=== PATIENT | male | born 1975 | race Hispanic/Latino ===

== ENCOUNTER 2020-03-13 18:03 | Emergency (ER) | payer OTHER | END 2020-03-13 19:45 | disposition home or self-care (01) | LOC: EDH 18:03 | DX: J18.9 Pneumonia, unspecified organism (principal) | CPT/HCPCS: 71045 ==

== ENCOUNTER 2020-09-19 11:01 | Emergency (ER) | payer OTHER ==
[2020-09-19] MEDS ORDERED: ACETAMINOPHEN 500 MG TABLET ONE (11:18)
[2020-09-19] MEDS ORDERED: PREDNISONE 20 MG TABLET ONE (12:47)
== END 2020-09-19 12:55 | disposition home or self-care (01) ==
LOC: EDH 11:01
DX: B34.9 Viral infection, unspecified (principal); R50.9 Fever, unspecified; R05 Cough; Z20.822 Contact with and (suspected) exposure to COVID-19; J45.909 Unspecified asthma, uncomplicated; M19.90 Unspecified osteoarthritis, unspecified site
CPT/HCPCS: 71045; 87426; 99284; U0003

== ENCOUNTER 2021-09-10 11:58 | Emergency (ER) | payer OTHER ==
[~2021-09-10] VITALS: Ht 167.6 cm; Wt 99.8 kg
[2021-09-10] MEDS ORDERED: DEXAMETHASONE SOD PHOSPHATE 4 MG/ML 1ML VIAL IM ONE (15:00)
[2021-09-10] MEDS ORDERED: IBUP-2070 PO (15:05)
[2021-09-10] MEDS ORDERED: DIPH25 PO (15:05)
[2021-09-10] MEDS ORDERED: PSEU120T62 PO (15:05)
[2021-09-10] MEDS ORDERED: BROM237S PO (15:05)
[2021-09-10] MEDS ORDERED: ALBU8.5H8 IH (15:05)
[2021-09-10] MEDS ORDERED: DEXAMETHASONE SOD PHOSPHATE 4 MG/ML 1ML VIAL ONE (15:09)
[2021-09-10 15:22] VITALS: BP 141/84
== END 2021-09-10 15:15 | disposition home or self-care (01) ==
LOC: EDH 11:58
DX: U07.1 COVID-19 (principal); E11.9 Type 2 diabetes mellitus without complications; J45.909 Unspecified asthma, uncomplicated
CPT/HCPCS: 87635; 87804 ×2; 96372; 99283; C9803; J1100

== ENCOUNTER 2025-02-17 16:01 | Emergency (ER) | payer OTHER ==
[~2025-02-17] VITALS: Ht 162.6 cm; Wt 95.3 kg
[~2025-02-17 16:01] MED LIST: ALBU8.5H8 IH; AZIT1PAC7 PO; BROM118S48 PO; BROM237S PO; DIPH-1242 PO; IBUP-2070 PO; PRED20TA3 PO; PSEU120T62 PO
[2025-02-17 16:17] VITALS: BP 158/90; PULSE 95; RESP 16; TEMP 98.1; O2SAT 98
[2025-02-17] MEDS: teTANUS/diphthERIA TOXOID [ADULT] 0.5 ML VIAL IM ONE (16:25)
[2025-02-17] MEDS: cefTRIAXone 1G VIAL IM ONE (16:25)
[2025-02-17] MEDS: LIDOCAINE HCL 1% 20 ML VIAL INJ STA (16:25)
[2025-02-17] MEDS ORDERED: CEPH500B PO (16:49)
--- NOTE | 2025-02-17 16:49 | ERN ---
General Chief Complaint: Laceration/Avulsion Stated Complaint: LACERATION Time Seen by MD: 16:04 Source: patient History of Present Illness Initial Comments PATIENT IS A 49-YEAR-OLD GENTLEMAN COMING IN TO BE EVALUATED FOR RIGHT HAND 3RD DIGIT LACERATION. PER PATIENT SHE WAS WORKING WITH A POWER TOOL. PATIENT STATES HE CUT THE MIDDLE FINGER. Allergies: Coded Allergies: No Known Drug Allergies (Unverified Allergy, Unknown, 09/19/20) Home Meds Active Scripts Prednisone (Prednisone) 20 Mg Tablet, 2 TAB PO DAILY for 5 Days, #10 TAB 0 Refills TAKE 1 TAB BY MOUTH THREE TIMES PER DAY X3 DAYS, THEN TAKE 1 TAB BY MOUTH TWICE A DAY X2 DAYS, THEN TAKE 1 TAB BY MOUTH ONCE A DAY X1 DAY. Prov:JESSICA JOYNER MD 09/29/21 Azithromycin (Azithromycin) 1 Gm Packet, 1 TAB PO AD for 5 Days, #1 PKT Prov:JESSICA JOYNER MD 09/29/21 D-Methorphan Hb/P-Epd HCl/Bpm (Bromfed Dm Cough Syrup) 118 Ml Syrup, 10 ML PO QID for cough, #120 ML Prov:JESSICA JOYNER MD 09/29/21 Diphenhydramine HCl (Benadryl) 25 Mg Cap, 25 MG PO BID for 5 Days, #10 CAP Prov:GO GIFFORD 09/10/21 Pseudoephedrine HCl (Sudafed 12 Hour) 120 Mg Tablet.er, 120 MG PO BID for 5 Days, #10 TAB Prov:GO GIFFORD 09/10/21 Ibuprofen (Ibuprofen) 600 Mg Tablet, 600 MG PO Q6H PRN for PAIN, #15 TAB Prov:GO GIFFORD 09/10/21 Brompheniram/Phenylephrine/Dm (Dimetapp Cold & Cough Liquid) 237 Ml Solution, 10 ML PO TID for 5 Days, #100 ML Prov:GO GIFFORD 09/10/21 Albuterol Sulfate (Proair Hfa) 8.5 Gm Hfa.aer.ad, 2 INH IH Q4H for 5 Days, #1 INHALER Prov:GO GIFFORD 09/10/21 Past Medical History Past Medical History: Arthritis, Asthma Past Surgical History: Other Social History Social History: Negative ROS Dictation CONSTITUTIONAL: NO CHILLS, NO FEVER, NO WEAKNESS, NO DIAPHORESIS, NO MALAISE. HEAD/FACE: NO SIGNS OF TRAUMA. EENT: NO EYE PAIN, NO BLURRED VISION, NO TEARING, NO DOUBLE VISION, NO EAR PAIN, NO EAR DISCHARGE, NO NOSE PAIN, NO NASAL CONGESTION, NO THROAT PAIN, NO THROAT SWELLING, NO MOUTH PAIN. RESPIRATORY: NO COUGH, NO ORTHOPNEA, NO SOB, NO STRIDOR, NO WHEEZING. CARDIOVASCULAR: NO CHEST PAIN, NO EDEMA, NO PALPITATIONS, NO SYNCOPE. GASTROINTESTINAL/ABDOMINAL: NO ABDOMINAL PAIN, NO CONSTIPATION, NO DIARRHEA, NO NAUSEA, NO VOMITING. GENITOURINARY: NO ABNORMAL DISCHARGE, NO DYSURIA, NO FREQUENT URINATION, NO HEMATURIA. NO COMPLAINTS OF PAIN IN THE GENITALS. MUSCULOSKELETAL: NO BACK PAIN, NO GOUT, NO JOINT PAIN, NO JOINT SWELLING, NO MUSCLE PAIN, NO MUSCLE STIFFNESS, NO NECK PAIN. INTEGUMENTARY: NO CHANGE IN COLOR, NO CHANGE IN HAIR/NAILS, NO DRYNESS, LESION, NO LUMPS, NO RASH. NEUROLOGICAL/PSYCH: NO ANXIETY, NOT DEPRESSED, NO EMOTIONAL PROBLEM, NO HEADACHE, NO NUMBNESS, NO PRE-EXISTING DEFICIT, NO HISTORY OF SEIZURES, NO TREMORS, NO WEAKNESS. HEMATOLOGIC/LYMPHATIC: NOT ANEMIC, NO HISTORY OF BLOOD CLOTS, NO APPARENT BLEEDING, NO BRUISING, GLANDS NOT SWOLLEN. ALL SYSTEMS NEGATIVE, EXCEPT NOTED. Physical Exam Physical Exam Dictation VITAL SIGNS: REVIEWED. GENERAL APPEARANCE: ALERT, ORIENTED X3, NO ACUTE DISTRESS, OBESE. HEAD AND FACE: NON-TRAUMATIC. EYES: PERRL, PINK CONJUNCTIVAS, EYELID NO TRAUMA, ANTERIOR CHAMBER CLEAR. EARS: PINNAS INTACT AND NO SIGNS OF TRAUMA OR ERYTHEMA. EAR CANALS CLEAR AND NO DISCHARGE. TMS NO ERYTHEMA. NOSE: NO DISCHARGE, NO BLEEDING. OROPHARYNX: MOUTH NORMAL, TEETH NO CARIES, TONGUE PINK. PHARYNX CLEAR, NO ERYTHEMA. TONSILS NO EXUDATES, NO ABSCESSES NOTED. MUCOUS MEMBRANE MOIST. NECK: SUPPLE, NON-TENDER, NO THYROMEGALY, NO MASSES, NO JVD, NO BRUITS. BREAST: DEFERRED. CHEST: NO TENDERNESS, NO CREPITUS, NO PARADOXICAL MOVEMENT, NO RETRACTIONS. LUNGS: CLEAR, WELL-VENTILATED, SYMMETRIC, NO RALES, NO WHEEZING, NO RHONCHI, NO STRIDOR, GOOD BREATH SOUNDS BILATERALLY. HEART: REGULAR RATE, REGULAR RHYTHM, NO MURMUR, NO GALLOPS. VASCULAR: NO PERIPHERAL EDEMA. ABDOMEN: SOFT, POSITIVE BOWEL SOUNDS, NONDISTENDED, NO GUARDING, NONTENDER, NO REBOUND, NO MASSES NO HEPATOMEGALY, NO SPLENOMEGALY, NO VAZQUEZ'S SIGN, NO HERNIAS. RECTAL: DEFERRED. GENITAL: DEFERRED. NEUROLOGICAL: NORMAL SPEECH, GROSS MOTOR FUNCTION INTACT, GROSS SENSORY FUNCTION INTACT. MUSCULOSKELETAL: NECK NONTENDER, FULL RANGE OF MOTION, BACK NONTENDER, FULL RANGE OF MOTION. EXTREMITIES: NONTENDER, FULL RANGE OF MOTION. SKIN: COLOR PINK, DRY, NO TURGOR, NO RASH, RIGHT HAND 3RD DIGIT LACERATION 2 CM, NO ABRASIONS, NO CONTUSIONS. Results Laboratory and Microbiology Labs Reviewed?: Yes MDM MDM: DIFFERENTIAL DIAGNOSIS: FINGER LACERATION, FINGER ABRASION, RATIONALE: TESTS CONSIDERED AND ORDERED SECONDARY TO SHARED DECISION MAKING INCLUDE: PREVIOUS OUTSIDE RECORDS REVIEWED: OLD ER VISITS. RISK OF COMPLICATION AND/OR MORBIDITY OR MORTALITY OF PATIENT MANAGEMENT: NONE MEDICATIONS-PER MEDICATION RECONCILIATION PATIENT IS A 49-YEAR-OLD MALE COMING IN TO BE EVALUATED FOR RIGHT HAND MIDDLE DIGIT WOUND. ON PHYSICAL EXAM THERE IS A LACERATION OF THE DISTAL FINGER 2 CM. LACERATION WAS REPAIRED USING ETHILON 5-0 X 6. ED Course Orders Procedure Category Date Status Time Tetanus,Diphtheria PHA 02/17/25 Complete Tox [Adult] (Diphther 16:30 Lidocaine Hcl 1% 20ml PHA 02/17/25 Complete Vial (Lidocaine Hc 16:09 Ceftriaxone 1g Vial PHA 02/17/25 Complete (Rocephine 1g Inj) 16:30 Current Medications Medications (Trade) Dose Ordered Sig/Kelly Route PRN Reason Start Time Stop Time Status Last Admin Dose Admin Ceftriaxone Sodium (ROCEphine 1G INJ) 1 gm ONCE ONCE IM 02/17/25 16:30 02/17/25 16:31 DC 02/17/25 16:25 Lidocaine HCl (Lidocaine HCl 1% 20ml Vial) 20 ml ONCE STAT INJ 02/17/25 16:09 02/17/25 16:17 DC 02/17/25 16:25 Tetanus/ Diphtheria Toxoids Adsorbed (DiphthERIA-teTANUS TOXOID [ADULT]/ DECAVAC) 0.5 ml ONCE ONCE IM 02/17/25 16:30 02/17/25 16:31 DC Vital Signs Date Time Temp Pulse Resp B/P (MAP) Pulse Ox O2 Delivery O2 Flow Rate FiO2 02/17/25 16:17 98.1 95 16 158/90 98 Room Air* 0 21 02/17/25 16:04 97.5 104 18 161/100 0 Room Air Laceration/Wound Repair Laceration/Wound Repair : Wound Location: upper extremity Wound Length (cm): 2 Wound's Depth, Shape: superficial Wound Explored: clean Irrigated w/ Saline (ccs): 100 Betadine Prep?: Yes Anesthesia: 1% Lidocaine Volume Anesthetic (ccs): 5 Wound Debrided: minimal Wound Repaired With: sutures Suture Size/Type: 5:0 Number of Sutures: 6 DX & DISP Disposition: Discharge Departure Impression: Primary Impression: Finger laceration Condition: Stable Scripts Cephalexin Monohydrate (Keflex) 500 Mg Cap 1 CAP PO TID for 10 Days, #30 CAP 0 Refills Prov: JOHN MILLARD MD 02/17/25 Additional Instructions: FOLLOW-UP WITH PRIMARY CARE PROVIDER IN 1 TO 2 DAYS. TAKE MEDICATIONS DIRECTED HERE IN THE EMERGENCY ROOM. OKAY TO CONTINUE HOME MEDICATIONS UNLESS OTHERWISE DISCUSSED DURING YOUR VISIT IN THE EMERGENCY ROOM TODAY. RETURN TO YOUR NEAREST EMERGENCY ROOM IF SYMPTOMS WORSEN OR IF THERE IS NO IMPROVEMENT. CALL 911 IF YOU NEED IMMEDIATE ASSISTANCE. TAKE TYLENOL [id number] NEEDED AND IF NO CONTRAINDICATIONS ARE PRESENT. INCREASE ORAL HYDRATION. A WOUND CULTURE OR URINE CULTURE WAS ORDERED HERE IN THE EMERGENCY ROOM DEPARTMENT PLEASE FOLLOW-UP WITH PRIMARY CARE PROVIDER AND ADVISE THEM TO GET REPORTS FROM OUR FACILITY. IF YOU HAD ANY MAURICIO WRAP/SPLINTS THAT WERE APPLIED HERE, PLEASE DO NOT REMOVE THEM UNTIL YOU SEE YOUR PRIMARY CARE OR SPECIALTY. REFERRALS: Referrals: SELF,REFERRAL (PCP) DARY STARKS MD Time of Disposition: 16:48 JOHN MILLARD MD Feb 17, 2025 16:49
[2025-02-18] MEDS ORDERED: ALBU2.5V2 NEB (13:40)
== END 2025-02-17 17:16 | disposition home or self-care (01) ==
LOC: EDH 16:01
DX: S61.212A Laceration without foreign body of right middle finger without damage to nail, initial encounter (principal); J45.909 Unspecified asthma, uncomplicated; M19.90 Unspecified osteoarthritis, unspecified site; Z79.52 Long term (current) use of systemic steroids; W45.8XXA Other foreign body or object entering through skin, initial encounter; Y93.89 Activity, other specified; Y92.89 Other specified places as the place of occurrence of the external cause; Y99.8 Other external cause status
CPT/HCPCS: 99283; 96372; 12001; J0696

== ENCOUNTER 2025-02-18 04:19 | Observation (INO) | payer OTHER ==
[~2025-02-18] VITALS: Ht 167.6 cm; Wt 107.2 kg
[2025-02-18] VITALS (11 sets, daily range): BP systolic 151–177; BP diastolic 88–101; PULSE 94–118; RESP 18–21; TEMP 98.6; O2SAT 95–100
[~2025-02-18 04:19] MED LIST changes: +CEPH500B PO
[2025-02-18] MEDS: IpraTROPium/alBUTERol SULFATE 3 ML SOLUTION IH ONE ×2 (04:38→04:39)
--- NOTE | 2025-02-18 04:44 | ERN ---
General Chief Complaint: Shortness of Breath Stated Complaint: ASTHMA Time Seen by MD: 04:42 History of Present Illness Initial Comments Patient is a 49-year-old male with a history of asthma attacks who comes in with a recurrent asthma episode. He can not think of anything specific that precipitated this episode. Timing/Duration: 24 hours Allergies: Coded Allergies: No Known Drug Allergies (Unverified Allergy, Unknown, 09/19/20) Home Meds Active Scripts Cephalexin Monohydrate (Keflex) 500 Mg Cap, 1 CAP PO TID for 10 Days, #30 CAP 0 Refills Prov:JOHN MILLARD MD 02/17/25 Prednisone (Prednisone) 20 Mg Tablet, 2 TAB PO DAILY for 5 Days, #10 TAB 0 Refills TAKE 1 TAB BY MOUTH THREE TIMES PER DAY X3 DAYS, THEN TAKE 1 TAB BY MOUTH TWICE A DAY X2 DAYS, THEN TAKE 1 TAB BY MOUTH ONCE A DAY X1 DAY. Prov:JESSICA JOYNER MD 09/29/21 Azithromycin (Azithromycin) 1 Gm Packet, 1 TAB PO AD for 5 Days, #1 PKT Prov:JESSICA JOYNER MD 09/29/21 D-Methorphan Hb/P-Epd HCl/Bpm (Bromfed Dm Cough Syrup) 118 Ml Syrup, 10 ML PO QID for cough, #120 ML Prov:JESSICA JOYNER MD 09/29/21 Diphenhydramine HCl (Benadryl) 25 Mg Cap, 25 MG PO BID for 5 Days, #10 CAP Prov:GO GIFFORD 09/10/21 Pseudoephedrine HCl (Sudafed 12 Hour) 120 Mg Tablet.er, 120 MG PO BID for 5 Days, #10 TAB Prov:GO GIFFORD 09/10/21 Ibuprofen (Ibuprofen) 600 Mg Tablet, 600 MG PO Q6H PRN for PAIN, #15 TAB Prov:GO GIFFORD 09/10/21 Brompheniram/Phenylephrine/Dm (Dimetapp Cold & Cough Liquid) 237 Ml Solution, 10 ML PO TID for 5 Days, #100 ML Prov:GO GIFFORD 09/10/21 Albuterol Sulfate (Proair Hfa) 8.5 Gm Hfa.aer.ad, 2 INH IH Q4H for 5 Days, #1 INHALER Prov:SOPHIAMARTYGO WEINBERG 09/10/21 Past Medical History Past Medical History: No Pertinent History Medical History Other: ASTHMA Past Surgical History: None Social History Social History: Negative Constitutional: (-) chills, (-) diaphoresis, (-) fever, (-) malaise, (-) weakness, (-) other documentation EENTM: (-) eye pain, (-) blurred vision, (-) tearing, (-) double vision, (-) ear pain, (-) ear discharge, (-) nose pain, (-) nose congestion, (-) throat pain, (-) Throat swelling, (-) mouth pain, (-) tooth pain, (-) mouth swelling, (-) other documentation Respiratory: (-) cough, (-) orthopnea, (-) short of breath, (-) stridor, (-) wheezing, (-) other documentation Cardiovascular: (-) chest pain, (-) edema, (-) palpitations, (-) syncope, (-) dyspnea on exertion, (-) other documentation Gastrointestinal/Abdominal: (-) nausea, (-) vomiting, (-) diarrhea, (-) abdominal pain, (-) abdominal distention, (-) constipation, (-) rectal bleeding, (-) dark stool/melena, (-) other documentation Musculoskeletal: (-) Neck pain, (-) back pain, (-) Flank Pain, (-) joint pain, (-) joint swelling, (-) muscle pain, (-) muscle stiffness, (-) gout, (-) other documentation Skin: (-) laceration, (-) contusion, (-) abrasion, (-) abscess, (-) rash, (-) change in color, (-) change in hair, (-) change in nails, (-) diaphoresis, (-) dryness, (-) other documentation Physical Exam General Appearance: (+) moderate distress Orientation: (+) alert, (+) oriented x 3 Head/Face Trauma: No Eye: bilateral eye normal inspection, bilateral eye PERRL, bilateral eye EOMI Ear, Nose, Throat: (+) hearing grossly normal, (+) normal ENT inspection, (+) moist mucous membraine Neck: (+) normal inspection, (+) supple, (+) full range of motion Respiratory: (+) chest non-tender, (+) decreased breath sounds, (+) wheezing Heart: (+) tachycardia Vascular: (+) no edema, (+) normal peripheral pulse Gastrointestinal: (+) soft, (+) non-tender, (+) bowel sound present Results Laboratory and Microbiology Lab and Micro Result Laboratory Tests Test 02/18/25 04:35 02/18/25 05:20 Influenza Type A Antigen Negative For Type A Influenza Type B Antigen Negative For Type B SARS-CoV-2, RNA, NAAT NEGATIVE SARS CoV-2 Group A Streptococcus Rapid negative (NEGATIVE) White Blood Count 8.1 K/uL (4.8-10.8) Red Blood Count 4.63 MIL/uL (4.50-6.20) Hemoglobin 14.9 g/dL (14.0-18.0) Hematocrit 41.5 % (42-54) L Mean Corpuscular Volume 89.6 fL (79-99) Mean Corpuscular Hemoglobin 32.2 pg (27.0-33.0) Mean Corpuscular Hemoglobin Concent 35.9 g/dL (32.0-36.0) Red Cell Distribution Width 12.8 % (11.0-15.5) Platelet Count 171 K/uL (130-400) Mean Platelet Volume 10.8 fL (7.5-10.5) H Immature Granulocyte % (Auto) 0.2 % (0-1) Neutrophils (%) (Auto) 57.4 % (40.0-77.0) Lymphocytes (%) (Auto) 26.6 % (21.0-51.0) Monocytes (%) (Auto) 5.9 % (3.0-13.0) Eosinophils (%) (Auto) 9.5 % (0.0-8.0) H Basophils (%) (Auto) 0.4 % (0.0-5.0) Neutrophils # (Auto) 4.7 K/uL (1.8-7.7) Lymphocytes # (Auto) 2.2 K/uL (1.0-4.8) Monocytes # (Auto) 0.5 K/uL (0.1-1.0) Eosinophils # (Auto) 0.77 K/uL (0.00-0.70) H Basophils # (Auto) 0.03 K/uL (0.00-0.20) Absolute Immature Granulocyte (auto 0.02 K/uL (0-1) Nucleated Red Blood Cells 0.0 % (0.0-0.19) Sodium Level 137 mmol/L (136-145) Potassium Level 3.8 mmol/L (3.5-5.1) Chloride Level 102 mmol/L (101-111) Carbon Dioxide Level 26 mmol/L (21-32) Blood Urea Nitrogen 12 mg/dL (7-18) Creatinine 0.7 mg/dL (0.5-1.3) Glomerular Filtration Rate Calc 114 mL/min (>90) Random Glucose 140 mg/dL (70-105) H Total Calcium 8.3 mg/dL (8.5-10.1) L Total Bilirubin 0.4 mg/dL (0.2-1.0) Aspartate Amino Transf (AST/SGOT) 22 U/L (10-37) Alanine Aminotransferase (ALT/SGPT) 50 U/L (12-78) Alkaline Phosphatase 80 U/L (50-136) Total Protein 6.8 g/dL (6.0-8.3) Albumin 3.5 g/dL (3.5-5.0) Labs Reviewed?: Yes EKG/XRAY/US/CT/MRI X-RAY Comment Chest x-ray-mild pulmonary infiltrate MDM Patient has a history of recurrent asthma attacks he is here with a another one. We have treated him with two DuoNebs with some improvement in his respiratory symptoms I am giving the patient magnesium and steroids. Chest x-ray has been ordered. Viral panel ordered. MDM: Differential diagnosis: Asthma exacerbation, URI, bronchitis, Rationale: Tests considered and ordered secondary to shared decision making include: labs, ECG and radiology Previous outside records reviewed: Old ER visits. Risk of complication and/or morbidity or mortality of patient management: None Medications-Per medication reconciliation Need for hospitalization: Patient does meet criteria for hospitalization. Need for emergency major/minor surgery: No There are no social concerns with this patient. Prescription drug management Prescriptions will include symptomatic care Patient's prior external medical records from other ER visits were reviewed by me as indicated. Prior testing and results from previous visits were reviewed. Prior tests were taken into account with medical decision making and resource utilization, independent historian/historians were used to obtain complete medical history. I independently interpreted the test that were performed, results were reviewed by me and considered findings on radiology if ordered. Medical management and examination interpretation discussions were had by me with other qualified healthcare professionals as indicated for the patient's care. Patient is a 49-year-old gentleman coming in complaining of shortness of breath. On physical exam patient has wheezing bilateral lung landon. Patient was treated with IV steroids of the has a wheezing treatments symptoms persisted. Patient will be admitted under the care of hospitalist group for ongoing management of asthma exacerbation. ED Course Orders Procedure Category Date Status Time Ipratropium/Albuterol PHA 02/18/25 Complete Neb (Duoneb) 05:00 Covid Rna Naat LAB 02/18/25 Complete 04:33 Influenza Type A & B, LAB 02/18/25 Complete Rapid 04:33 Ipratropium/Albuterol PHA 02/18/25 Complete Neb (Duoneb) 04:33 Rapid (Group A Strep) LAB 02/18/25 Complete 04:41 Methylprednisolone PHA 02/18/25 Complete Succ 125mg (Solu-Medr 05:00 Magnesium 2gm Premix PHA 02/18/25 In Process 50ml (Magnesium 2gm 05:00 Cbc With Differential LAB 02/18/25 Complete 05:35 Comprehensive LAB 02/18/25 Complete Metabolic Panel 05:35 Albuterol 0.083% PHA 02/18/25 Complete 2.5mg/3ml (Proventil 06:47 Chest 1vw RAD 02/18/25 Taken 06:50 Respiratory RT 02/18/25 Transmitted Communication 06:59 Current Medications Medications (Trade) Dose Ordered Sig/Kelly Route PRN Reason Start Time Stop Time Status Last Admin Dose Admin Albuterol (DUOneb) 1 udvial STK-MED ONCE IH 02/18/25 04:33 02/18/25 04:33 DC Albuterol (DUOneb) 2 udvial ONCE ONCE IH 02/18/25 05:00 02/18/25 05:01 DC 02/18/25 04:38 Albuterol Sulfate (Proventil 0.083% 2.5mg/3ml) 10 mg NOW STAT IH 02/18/25 06:47 02/18/25 06:55 DC 02/18/25 07:13 Magnesium Sulfate 50 ml @ 0 mls/hr PROTOCOL IV 02/18/25 05:00 03/20/25 04:59 02/18/25 05:39 Methylprednisolone Sodium Succinate (Solu-medROL 125MG) 125 mg ONCE ONCE IM 02/18/25 05:00 02/18/25 05:03 DC 02/18/25 05:38 Vital Signs Date Time Temp Pulse Resp B/P (MAP) Pulse Ox O2 Delivery O2 Flow Rate FiO2 02/18/25 08:17 97.9 103 22 150/93 99 Room Air* 0 21 02/18/25 07:13 101 21 8.0 02/18/25 06:30 98.2 92 20 142/92 93 Room Air* 0 21 02/18/25 05:30 98.4 98 20 148/90 94 Room Air* 0 21 02/18/25 04:39 100 19 02/18/25 04:20 101 24 159/97 99 02/18/25 04:20 98.8 105 18 159/97 94 Room Air* 0 21 Critical Care Note Comments Critical Care Procedure Note Authorized and Performed by: me Total critical care time: Approximately 36 minutes Due to a high probability of clinically significant, life threatening deterioration, the patient required my highest level of preparedness to intervene emergently and I personally spent this critical care time directly and personally managing the patient. This critical care time included obtaining a history; examining the patient; pulse oximetry; ordering and review of studies; arranging urgent treatment with development of a management plan; evaluation of patient's response to treatment; frequent reassessment; and, discussions with other providers. This critical care time was performed to assess and manage the high probability of imminent, life-threatening deterioration that could result in multi-organ failure. It was exclusive of separately billable procedures and treating other patients and teaching time. Please see MDM section and the rest of the note for further information on patient assessment and treatment. DX & DISP Disposition: Inpatient Decision to Admit Time: 08:40 Departure Impression: Primary Impression: Asthma exacerbation Condition: Stable Referrals: SELF,REFERRAL (PCP) GUSTABO BECERRA MD Feb 18, 2025 04:44 JOHN MILLARD MD Feb 18, 2025 08:10
[2025-02-18 04:56] LABS: SARS-CoV-2, RNA, NAAT NEGATIVE SARS CoV-2 (NEGATIVE)
[2025-02-18 05:03] LABS: INFLUENZA TYPE A Negative For Type A (NEGATIVE); INFLUENZA TYPE B Negative For Type B (NEGATIVE)
[2025-02-18] MEDS: Solu-medROL 125MG VIAL IM ONE (05:38)
[2025-02-18] MEDS: MAGNESIUM 2GM PREMIX 50ML 50 ML IV SCH (05:39)
[2025-02-18 05:40] LABS: BASOPHILS # (AUTO) 0.03 K/uL (0.00-0.20); BASOPHILS % (AUTO) 0.4 % (0.0-5.0); EOSINOPHILS # (AUTO) 0.77 K/uL (0.00-0.70); EOSINOPHILS % (AUTO) 9.5 % (0.0-8.0); HEMATOCRIT 41.5 % (42-54); IMMATURE GRANULOCYTE ABSOLUTE 0.02 K/uL (0-1); LYMPHOCYTES # (AUTO) 2.2 K/uL (1.0-4.8); LYMPHOCYTES % (AUTO) 26.6 % (21.0-51.0); MEAN CORPUSCULAR HEMOGLOBIN 32.2 pg (27.0-33.0); MEAN CORPUSCULAR HGB CONC 35.9 g/dL (32.0-36.0); MEAN CORPUSCULAR VOLUME 89.6 fL (79-99); MONOCYTES # (AUTO) 0.5 K/uL (0.1-1.0); MONOCYTES % (AUTO) 5.9 % (3.0-13.0); NEUTROPHILS # (AUTO) 4.7 K/uL (1.8-7.7); NEUTROPHILS % (AUTO) 57.4 % (40.0-77.0); PLATELET COUNT (AUTO) 171 K/uL (130-400); RED BLOOD CELL COUNT(AUTO) 4.63 MIL/uL (4.50-6.20); RED CELL DISTRIBUTION WIDTH 12.8 % (11.0-15.5); WHITE BLOOD COUNT (AUTO) 8.1 K/uL (4.8-10.8)
[2025-02-18 05:59] LABS: ALBUMIN 3.5 g/dL (3.5-5.0); BILIRUBIN,TOTAL 0.4 mg/dL (0.2-1.0); CREATININE 0.7 mg/dL (0.5-1.3); POTASSIUM 3.8 mmol/L (3.5-5.1); TOTAL PROTEIN, SERUM 6.8 g/dL (6.0-8.3)
[2025-02-18] MEDS: ALBUTEROL 0.083% 2.5 MG/3 ML INH IH STA (07:13)
--- NOTE | 2025-02-18 09:30 | NUR ---
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 Pt receives medical care and meds thru local [place], is on [facility]. Pt reports he lives with Lourdes Marshall [phone], he is active and independent of all his ADLS nd IADLS. No HH or HD services needed at this time. Denies need for SNF or referral, [place] Addendum: 02/18/25 at 0933 by NETTA KLEIN Amended: Links added.
--- NOTE | 2025-02-18 09:45 | HP ---
[facility] HISTORY AND PHYSICAL Date of Service: Feb 18, 2025 Time of Service: 09:38 PCP: [facility] purple team Admitting: Dr Santiago, Allergies: No Allergy Information Available, No Known Drug Allergies HISTORY OF PRESENT ILLNESS: [ Patient is49 years old male with past medical history of asthma and hyperlipidemia, who came to emergency department with a complaint of excessive cough and shortness of breaths. Patient stated that about 3:00 a.m. he woke up and he could not stop coughing he was also very short of breaths and that is why he decided to come to hospital. Yes his to take him to ER. 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 Most recent vital signs temperature 97.9 pulse 103 respiration blood pressure 150/93 patient is on2 L nasal cannula satting 98%. Influenza A negative influenza B negative COVID negative strep rapid negative. WBC 8.1 Hemoglobin 14.9 hematocrit 41.5 platelets [id number] potassium 3.8 CO2 26 BUN12 creatinine 0.7 GFR 114. Chest x-ray pending Patient will be admitted under hospitalist care for further evaluation/recommendation. We will consult flatbed owner operator for further evaluation/recommendations. A.m. labs. REVIEW OF SYSTEMS CONSTITUTIONAL: Denies fevers, chills, or night sweats. No unintentional weight loss reported. NEUROLOGICAL: Denies headache, amaurosis fugax, motor weakness, sensory deficit, vertigo/spinning sensation, gait abnormalities, or tremors. ENT: No hearing loss, otalgia, otorrhea, rhinitis, rhinorrhea, hoarseness, or sore throat. CARDIOVASCULAR: Denies any exertional angina, dyspnea on exertion, orthopnea, paroxysmal nocturnal dyspnea, palpitations, life-threatening arrhythmias, claudication. PULMONARY: Denies any phlegm/sputum, hemoptysis, pleuritic chest pain. Complains of shortness of breaths and excessive cough SLEEP: Denies morning headaches, daytime somnolence or napping. Denies difficulty falling asleep, staying asleep, waking from sleep. Denies knowledge of snoring. GASTROINTESTINAL: Denies any type of dysphagia to either liquids or solids. Denies nausea, vomiting, pyrosis, early satiety, abdominal pain, diarrhea, constipation, or changes in stool consistency or caliber. Denies coffee-ground emesis, hematemesis, hematochezia, or melanotic stools. GENITOURINARY: Denies frequency, urgency, nocturia, hematuria or incontinence (Storage/Irritative symptoms.) Low urinary stream, straining to void, urinary intermittency or hesitancy, splitting of the voiding stream, terminal dribbling. ENDOCRINOLOGIC: Denies polyuria, polydipsia, polyphagia or heat/cold intolerances. HEMATOLOGIC: Denies thrombophilia/previous clots, or coagulopathy/bleeding disorders. ONCOLOGIC: Denies personal history of malignancy. DERMATOLOGIC: Denies rashes or pruritus. PSYCHIATRIC: Denies any suicidal or homicidal ideation. Denies hallucinations. PAST MEDICAL HISTORY: [ Asthma hyperlipidemia] PAST SURGICAL HISTORY: [ Denies any ] PAST SOCIAL HISTORY: [ Patient denies smoking. Patient stated he drinks alcohol occasionally. Patient denies any drug illicit ] FAMILY HISTORY: [ Patient lives at home with his and five daughters. Patient is independent] Coded Allergies: No Known Drug Allergies (Unverified Allergy, Unknown, 09/19/20) PHYSICAL EXAM GENERAL APPEARANCE: The patient is awake, alert, and oriented, in no acute cardiopulmonary distress. NEUROLOGICAL: Cranial nerves II-XII grossly intact. Motor is 5/5 in bilateral upper and lower extremities proximal to distal. No sensory deficits. HEENT: Face is symmetric. Pupils are equal and reactive. Extraocular movements are intact. NECK: Supple. No JVD. No thyromegaly. No submental, submandibular, pre- /postauricular, occipital or supraclavicular lymphadenopathy. CHEST: Normal chest expansion. No Telemetry. LUNGS: Absence of any rales, rhonchi or any wheezing. CARDIOVASCULAR: Regular. S1 and S2 normal. No appreciable rubs, murmurs or gallops. ABDOMEN: Soft, nontender, and nondistended. There is no rebound, voluntary guarding, or rigidity. : Deferred. No Contreras. EXTREMITIES: Non-edematous and not cyanotic. No clubbing. Good capillary refill. SKIN: No skin breakdown. Vital Sign (Last 24 Hours) 02/18/25 08:17 Temp 97.9 Pulse 103 Resp 22 B/P (MAP) 150/93 Pulse Ox 99 O2 Delivery Room Air* O2 Flow Rate 0 FiO2 21 LABS: Laboratory: Test 02/18/25 05:20 02/18/25 04:35 Range/Units White Blood Count 8.1 4.8-10.8 K/uL Red Blood Count 4.63 4.50-6.20 MIL/uL Hemoglobin 14.9 14.0-18.0 g/dL Hematocrit 41.5 L 42-54 % Mean Corpuscular Volume 89.6 79-99 fL Mean Corpuscular Hemoglobin 32.2 27.0-33.0 pg Mean Corpuscular Hemoglobin Concent 35.9 32.0-36.0 g/dL Red Cell Distribution Width 12.8 11.0-15.5 % Platelet Count 171 130-400 K/uL Mean Platelet Volume 10.8 H 7.5-10.5 fL Immature Granulocyte % (Auto) 0.2 0-1 % Neutrophils (%) (Auto) 57.4 40.0-77.0 % Lymphocytes (%) (Auto) 26.6 21.0-51.0 % Monocytes (%) (Auto) 5.9 3.0-13.0 % Eosinophils (%) (Auto) 9.5 H 0.0-8.0 % Basophils (%) (Auto) 0.4 0.0-5.0 % Neutrophils # (Auto) 4.7 1.8-7.7 K/uL Lymphocytes # (Auto) 2.2 1.0-4.8 K/uL Monocytes # (Auto) 0.5 0.1-1.0 K/uL Eosinophils # (Auto) 0.77 H 0.00-0.70 K/uL Basophils # (Auto) 0.03 0.00-0.20 K/uL Absolute Immature Granulocyte (auto 0.02 0-1 K/uL Nucleated Red Blood Cells 0.0 0.0-0.19 % Sodium Level 137 136-145 mmol/L Potassium Level 3.8 3.5-5.1 mmol/L Chloride Level 102 101-111 mmol/L Carbon Dioxide Level 26 21-32 mmol/L Blood Urea Nitrogen 12 7-18 mg/dL Creatinine 0.7 0.5-1.3 mg/dL Glomerular Filtration Rate Calc 114 >90 mL/min Random Glucose 140 H 70-105 mg/dL Total Calcium 8.3 L 8.5-10.1 mg/dL Total Bilirubin 0.4 0.2-1.0 mg/dL Aspartate Amino Transf (AST/SGOT) 22 10-37 U/L Alanine Aminotransferase (ALT/SGPT) 50 12-78 U/L Alkaline Phosphatase 80 50-136 U/L Total Protein 6.8 6.0-8.3 g/dL Albumin 3.5 3.5-5.0 g/dL Influenza Type A Antigen Negative For Type A NEGATIVE Influenza Type B Antigen Negative For Type B NEGATIVE SARS-CoV-2, RNA, NAAT NEGATIVE SARS CoV-2 NEGATIVE Group A Streptococcus Rapid negative NEGATIVE Current Medications Medications (Trade) Dose Ordered Sig/Kelly Route PRN Reason Start Time Stop Time Status Last Admin Dose Admin Albuterol Sulfate (Proventil 0.083% 2.5mg/3ml) 10 mg NOW STAT IH 02/18/25 06:47 02/18/25 06:55 DC 02/18/25 07:13 10 MG Dextrose (D50w) 50 ml AD PRN IV HYPOGLYCEMIA PROTOCOL 02/18/25 10:00 03/20/25 09:59 Glucagon (Glucagon 1mg Kit) 1 mg AD PRN IM HYPOGLYCEMIA PROTOCOL 02/18/25 10:00 03/20/25 09:59 Insulin Human Regular (humuLIN R 100 UNIT/ML 3ML) INSULIN SLIDING SCAL... ACHS SQ 02/18/25 11:30 03/20/25 11:29 Magnesium Sulfate 50 ml @ 0 mls/hr PROTOCOL IV 02/18/25 05:00 02/18/25 09:34 DC 02/18/25 05:39 25 MLS/HR Magnesium Sulfate 50 ml @ 0 mls/hr PROTOCOL PRN IV OTHER [SEE ORDER COMMENTS] 02/18/25 10:00 03/20/25 09:59 Potassium Chloride 100 ml @ 100 mls/hr AD PRN IV POTASSIUM PROTOCOL 02/18/25 10:00 03/20/25 09:59 Potassium Chloride (K-Dur/Klor-Con 20meq) 20 meq AD PRN PO POTASSIUM PROTOCOL 02/18/25 10:00 03/20/25 09:59 Potassium Chloride (KCl 10% Elixir 20meq/15ml) 20 meq AD PRN PO POTASSIUM PROTOCOL 02/18/25 10:00 03/20/25 09:59 DIAGNOSTICS / RADIOLOGY: [ ] ASSESSMENT: [ Acute asthma exacerbation POA Acute hypoxemic respiratory failure POA Uncontrolled hypertension POA Hyperlipidemia POA Hyperglycemia POA Electrolyte imbalance hypocalcemia 8.3 POA] PLAN: [ Admit to: Medical-surgical floor Consults: Emergency Department Antibiotics: Doxycycline Tests: 2D echo, CT chest, chest x-ray NEURO: Minimize central acting medications as possible. Fall Precautions. Well lighted room through the day and minimize interruptions through the night to prevent acute delirium. PULMONARY: Chest x-ray pending CT chest without contrast pending Pulmonology consultation pending Supplemental 02 as needed BiPAP as necessary, for respiratory distress Titrate Fio2 to keep Spo2 > or = 90% DuoNebs and CPT as needed IS hourly while awake for pulmonary hygiene Out of bed to chair as tolerated VAP Bundle Maintain aspiration precautions at all times CARDIOVASCULAR: 2D echo pending Follow hemodynamics. Vital signs per facility protocol GI & NUTRITION: Continue nutritional support Aspirations precautions Prokinetic agents and laxatives as needed KIDNEYS & ELECTROLYTES: Strict monitoring of intake and output Daily weights Avoid nephrotoxic agents Monitor electrolytes and replace as needed Goal urine output of 30mL/hr or 0.5mL/kg/hr Medications to be dosed according to renal function. Avoid contrast if possible ENDOCRINE: Maintain blood glucose between 100-180 at all times. Insulin sliding scale for blood glucose management Hypoglycemia and hyperglycemia protocol in place INFECTIOUS DISEASE: Trend temperature, WBC and procalcitonin level Follow cultures, deescalate antibiotics as soon as possible. Panculture if new onset fever HEMATOLOGY & COAGULATION: Monitor H&H. Keep Hgb > 7 Transfuse 1 unit of PRBC for Hgb < 7 Transfuse 1 pack of platelets of platelets < 20, 000 Watch for any signs and symptoms of bleeding SKIN: Pressure ulcer prevention per facility protocol Specialty mattress as needed Treatment plan discussed with patient and family at the bedside Medications to be reconciled once obtained by patient and/or family and available to be reconciled in computer p.r.n. medication for pain nausea and vomiting Questions were answered We will continue to monitor the patient closely Equipment Planner for disposition Rehab: PT/OT GI: PPI DVT: SCD's Code Status: Full Resuscitation Disposition: TBD Prognosis: Guarded] ADVANCED CARE PLANNING 1. Which of the following were discussed? Hospice Care - Yes / No Therapeutic options - Yes / No Advance Directives - Yes / No Other discussions - 2. Discussed with who? Patient 3. Voluntary nature of this service was explained to the patient? Yes / No 4. Amount of time spent -more than 35 minutes 5. Reviewed by Physician? (if this service was performed by NPP) Yes / No ATTESTATION BY PHYSICIAN I have seen and examined the patient. I reviewed the documentation, medical decision making, and treatment plan as noted by the mid-level provider above. I agree with the findings and plan of care. DICK SANTIAGO MD, [facility] B TERRITORY ACCOUNT REPRESENTATIVE Feb 18, 2025 09:45
[2025-02-18] MEDS ORDERED: ondanSETRON 4MG INJ IV PRN (10:00)
[2025-02-18] MEDS ORDERED: LACTULOSE 20 GM/30 ML UDCUP PO PRN (10:00)
[2025-02-18] MEDS ORDERED: acetaMINOPHEN 325 MG TAB PO PRN ×3 (10:00)
[2025-02-18] MEDS ORDERED: DEXTROSE 50%-WATER 50 ML DISP.SYRIN IV PRN (10:00)
[2025-02-18] MEDS ORDERED: acetaMINOPHEN WITH coDEINE 1 TAB TAB PO PRN (10:00)
[2025-02-18] MEDS ORDERED: ALBUTEROL 0.083% 2.5 MG/3 ML INH IH PRN (10:00)
[2025-02-18] MEDS ORDERED: MAG/ALUM/SIMETH 30 ML UDCUP PO PRN (10:00)
[2025-02-18] MEDS ORDERED: PoTASSium chloRIDE 20MEQ ER 20 MEQ ERTAB PO PRN (10:00)
[2025-02-18] MEDS ORDERED: PoTASSium chloRIDE 20MEQ/100ML 100 ML IV PRN (10:00)
[2025-02-18] MEDS ORDERED: NITROGLYCERIN 0.4 MG SL TAB SL PRN (10:00)
[2025-02-18] MEDS ORDERED: PoTASSium chl 10% ELIXIR 20MEQ 20 MEQ/15 ML UDCUP PO PRN (10:00)
[2025-02-18] MEDS ORDERED: MAGNESIUM 2GM PREMIX 50ML 50 ML IV PRN (10:00)
[2025-02-18] MEDS ORDERED: guaiFENesin-DM 200/20MG 10ML PO PRN (10:00)
[2025-02-18] MEDS ORDERED: GLUCAGON 1MG KIT 1 MG ML IM PRN (10:00)
[2025-02-18] MEDS ORDERED: FAMOTIDINE 20MG VIAL IV PRN (10:00)
[2025-02-18] MEDS ORDERED: ketOROlac 15MG/ML VIAL (15MG/ML) IV PRN (10:00)
[2025-02-18] MEDS ORDERED: ZOLPidem TARTrate 5 MG TAB PO PRN (10:00)
[2025-02-18] MEDS ORDERED: DiphenhydrAMINE HCL 50 MG/ML VIAL IV PRN (10:00)
[2025-02-18] MEDS: DOXYCYCLINE 100MG+NS 250ML 250 ML IV SCH (11:07)
[2025-02-18] MEDS: Solu-medROL 40MG VIAL IVP SCH (11:07)
[2025-02-18] MEDS: hydrALAZine 20MG/ML VIAL IV PRN (11:08)
[2025-02-18] MEDS: IpraTROPium/alBUTERol SULFATE 3 ML SOLUTION IH SCH (11:19)
[2025-02-18] MEDS: INSULIN humuLIN R 100 UNIT/ML 3ML SQ SCH (11:30)
--- NOTE | 2025-02-18 11:46 | HMCIMG ---
CHEST 1VW HISTORY: Wheezing COMPARISON: 09/19/2020 FINDINGS: A frontal projection of the chest was obtained. No acute pulmonary infiltrates is seen. The heart is normal in size. Prominent interstitial markings are seen. Degenerative changes are seen. IMPRESSION: 1. No acute pulmonary infiltrate is seen.
--- NOTE | 2025-02-18 12:19 | HMCIMG ---
CT CHEST W/O CONTRAST HISTORY: Asthma COMPARISON: None TECHNIQUE: Multiple sequential axial images of the chest were obtained from the thoracic inlet through upper abdomen. Patient was not given contrast through intravenous route. FINDINGS: There is no evidence of pulmonary nodule or parenchymal disease. No pleural effusion or pericardial effusion is seen. There is no evidence of pneumothorax. There are normal size mediastinal and hilar lymph nodes. The heart is not enlarged. Degenerative changes of the thoracolumbar spine are present. There is no evidence of adrenal nodule. Fatty changes of the liver are noted. IMPRESSION: 1. No evidence of pulmonary nodule or effusion is seen. CT was performed with one or more following dose reduction techniques: automated exposure control, adjustment of the mA and kv according to patient's size, or use of a iterative reconstruction technique.
[2025-02-18] MEDS ORDERED: ALBU2.5V2 NEB (13:40)
[2025-02-18] MEDS: amLODIPine 5 MG TAB PO SCH (16:58)
--- NOTE | 2025-02-18 17:42 | CONS ---
[facility] CONSULTATION NOTE Date Patient Seen: Feb 18, 2025 Time of Visit: 17:41 Supervising Physician: Dr. Zev Pedersen Reason for Consultation: Asthma exacerbation Primary Care Physician: [facility] Outpatient Specialists: [ ] Inpatient Consults: [ ] PROBLEM LIST: 1. Acute exacerbation of asthma 2. Hypertension uncontrolled, undiagnosed and untreated 3. Hyperlipidemia 4. Diabetes mellitus type II, undiagnosed and untreated 5. Morbid obesity HPI: Cirilo Marshall, is an 49-year-old gentleman, primary care provider, [facility], health history: Asthma, hyperlipidemia, obesity, prediabetic, and borderline high blood pressure presents to the emergency department today, 02/18/2025 for shortness of the breath. Patient reports this started occurring for about the past week, patient has been started on rescue med and his daily inhaler he takes twice a day, patient is reporting that his shortness of the breath is beginning to occur, and his medication is not being effective. Patient is aware that he is overweight, borderline diabetic and has borderline hypertension. Vital signs: Temperature 98.6, pulse 118, respirations 18, oxygen saturation on room air 97% with FiO2 21, blood pressure 177/80. Laboratory values: Hemoglobin 14.9, hematocrit 41.5%, platelets 171, sodium 137, potassium 3.8, BUN 12, creatinine 0.7, GFR 114. Chest x-ray results: No acute pulmonary infiltrate seen. CT chest without contrast results: No evidence of pulmonary nodule or pulmonary effusion. Patient was assessed in the emergency department in [place] #3. The patient is awake alert and oriented reports utilizing his nebulizer in his rescue med but is not being effective enough in the treatment of his asthma. 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 Recommendations: Antibiotics continue with doxycycline 100 mg IV q.12 hours DuoNeb breathing treatments q.6 hours Solu-Medrol 40 mg q.8 Aspiration precautions Patient out of bed for all meals Keep oxygen saturations greater than 92% Anticipating adjusting patient's home medications prior to discharge PAST MEDICAL HX: see above PAST SURGICAL HX: noncontributory SOCIAL HISTORY: No tobacco, ETOH, or illicit drug use Coded Allergies: No Known Drug Allergies (Unverified Allergy, Unknown, 09/19/20) REVIEW OF SYSTEMS: 12 point ROS reviewed with patient. Pertinent positives mentioned above. Otherwise negative. PHYSICAL EXAM: GENERAL: alert, weak, awake oriented x 3 HEENT: EOMI, Sclera non icteric, moist mucosa NECK: Supple, no JVD, trachea midline LUNGS: Clear breath sounds bilaterally. No wheezes HEART: Regular rate and rhythm. Normal S1 and S2, without murmurs ABD: Abdomen soft, nontender. Bowel sounds present EXT: No clubbing cyanosis or edema NEURO: Alert and oriented to person, follows commands Vital Signs (last 8hr) Date Time Temp Pulse Resp B/P (MAP) Pulse Ox O2 Delivery O2 Flow Rate FiO2 02/18/25 17:00 97 Room Air* 0 21 02/18/25 13:30 98.6 118 18 177/88 99 Room Air 0.0 02/18/25 11:22 102 20 02/18/25 11:22 102 20 N/A Room Air 21 02/18/25 11:00 98.6 107 20 151/101 97 Room Air 0.0 02/18/25 10:39 94 20 N/A Room Air 21 LABS: Hematology Labs: Test 02/18/25 05:20 Range/Units White Blood Count 8.1 4.8-10.8 K/uL Red Blood Count 4.63 4.50-6.20 MIL/uL Hemoglobin 14.9 14.0-18.0 g/dL Hematocrit 41.5 L 42-54 % Mean Corpuscular Volume 89.6 79-99 fL Mean Corpuscular Hemoglobin 32.2 27.0-33.0 pg Mean Corpuscular Hemoglobin Concent 35.9 32.0-36.0 g/dL Red Cell Distribution Width 12.8 11.0-15.5 % Platelet Count 171 130-400 K/uL Mean Platelet Volume 10.8 H 7.5-10.5 fL Immature Granulocyte % (Auto) 0.2 0-1 % Neutrophils (%) (Auto) 57.4 40.0-77.0 % Lymphocytes (%) (Auto) 26.6 21.0-51.0 % Monocytes (%) (Auto) 5.9 3.0-13.0 % Eosinophils (%) (Auto) 9.5 H 0.0-8.0 % Basophils (%) (Auto) 0.4 0.0-5.0 % Neutrophils # (Auto) 4.7 1.8-7.7 K/uL Lymphocytes # (Auto) 2.2 1.0-4.8 K/uL Monocytes # (Auto) 0.5 0.1-1.0 K/uL Eosinophils # (Auto) 0.77 H 0.00-0.70 K/uL Basophils # (Auto) 0.03 0.00-0.20 K/uL Absolute Immature Granulocyte (auto 0.02 0-1 K/uL Nucleated Red Blood Cells 0.0 0.0-0.19 % Chemistry Labs: Test 02/18/25 17:07 02/18/25 05:20 Range/Units Whole Blood Glucose 171 H 70-110 MG/DL Sodium Level 137 136-145 mmol/L Potassium Level 3.8 3.5-5.1 mmol/L Chloride Level 102 101-111 mmol/L Carbon Dioxide Level 26 21-32 mmol/L Blood Urea Nitrogen 12 7-18 mg/dL Creatinine 0.7 0.5-1.3 mg/dL Glomerular Filtration Rate Calc 114 >90 mL/min Random Glucose 140 H 70-105 mg/dL Total Calcium 8.3 L 8.5-10.1 mg/dL Total Bilirubin 0.4 0.2-1.0 mg/dL Aspartate Amino Transf (AST/SGOT) 22 10-37 U/L Alanine Aminotransferase (ALT/SGPT) 50 12-78 U/L Alkaline Phosphatase 80 50-136 U/L Total Protein 6.8 6.0-8.3 g/dL Albumin 3.5 3.5-5.0 g/dL DIAGNOSTICS / RADIOLOGY RESULTS: REASON: wheezing ORDERING PHYSICIAN: GUSTABO BECERRA MD PROCEDURE: CXR1VW - CHEST 1VW CHEST 1VW HISTORY: Wheezing COMPARISON: 09/19/2020 FINDINGS: A frontal projection of the chest was obtained. No acute pulmonary infiltrates is seen. The heart is normal in size. Prominent interstitial markings are seen. Degenerative changes are seen. IMPRESSION: 1. No acute pulmonary infiltrate is seen. DICTATED BY: LANDRY LOERA MD DATE: 02/18/[address] CHEST W/O CONTRAST HISTORY: Asthma COMPARISON: None TECHNIQUE: Multiple sequential axial images of the chest were obtained from the thoracic inlet through upper abdomen. Patient was not given contrast through intravenous route. FINDINGS: There is no evidence of pulmonary nodule or parenchymal disease. No pleural effusion or pericardial effusion is seen. There is no evidence of pneumothorax. There are normal size mediastinal and hilar lymph nodes. The heart is not enlarged. Degenerative changes of the thoracolumbar spine are present. There is no evidence of adrenal nodule. Fatty changes of the liver are noted. IMPRESSION: 1. No evidence of pulmonary nodule or effusion is seen. CT was performed with one or more following dose reduction techniques: automated exposure control, adjustment of the mA and kv according to patient's size, or use of a iterative reconstruction technique. DICTATED BY: LANDRY LOERA MD DATE: 02/18/25 1215 PLAN NEURO: Minimize central acting medications as possible. Maintain fall precautions, adequate lighting during the day PULMONARY: Supplemental 02 as needed. Maintain aspiration precautions at all times CARDIOVASCULAR: Follow hemodynamics. Vital signs per facility protocol GI & NUTRITION: Continue with nutritional support. Continue stool softeners and laxatives as needed. KIDNEYS & ELECTROLYTES: Strict monitoring of intake, output and overall fluid balance. Avoid nephrotoxic medications to the extent possible. Medications to be dosed according to renal function. Monitor electrolytes and replace as needed ENDOCRINE: Maintain blood glucose between 100-180 at all times. Hypoglycemia protocol in place INFECTIOUS DISEASE: Trend temperature, WBC and procalcitonin level Follow cultures, deescalate antibiotics as soon as possible. Panculture if new onset fever ONCOLOGY/HEMATOLOGY/COAGULATION: Monitor for s/s of bleeding Monitor hemoglobin, coagulation studies as needed SKIN: Pressure ulcer prevention per facility protocol Specialty mattress ORTHO/REHAB: Continue PT/OT Prophylaxis: Continue GI and DVT prophylaxis Code Status: Full Resuscitation Disposition: Per primary team TBD Other: Total patient care time exceeds 35 minutes excluding all procedures. 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
[2025-02-18] MEDS: HEParin 5,000 UNIT VIAL SQ SCH (21:53)
[2025-02-18] MEDS: FAMOTIDINE 20MG VIAL IV SCH (21:53)
[2025-02-18 23:19] LABS: APPEARANCE,URINE CLEAR (CLEAR); BILIRUBIN,URINE NEGATIVE (NEGATIVE); COLOR,URINE COLORLESS (YELLOW); GLUCOSE, URINE (UA) >=1000 mg/dL (NEGATIVE); KETONES,URINE 10 mg/dL (NEGATIVE); LEUKOCYTE ESTERASE ,URINE NEGATIVE Leu/uL (NEGATIVE); NITRATE,URINE NEGATIVE (NEGATIVE); OCCULT BLOOD,URINE NEGATIVE (NEGATIVE); PH,URINE 5.5 (5.0-8.0); PROTEIN,URINE NEGATIVE (NEGATIVE); UROBILINOGEN,URINE 0.2 mg/dL (0.2-1.0)
[2025-02-18 23:27] LABS: MUCUS,URINE RARE LPF (None Seen); RBC,URINE 0-1 /HPF (0-1)
[2025-02-19] VITALS (10 sets, daily range): BP systolic 132–167; BP diastolic 83–99; PULSE 100–114; RESP 16–24; TEMP 97.8–98.6; O2SAT 95–99
--- NOTE | 2025-02-19 01:09 | HMCSR ---
APPROVED REPORT EXAM: Two-dimensional and M-mode echocardiogram with Doppler and color Doppler. INDICATION ICD: Heart Failure 2D Dimensions RVDd3.1 cmLVEF(%)85.8 (>50%)LVED Vol(simp.)92.0 mL IVSd1.2 (0.7-1.1cm)FS(%)55 %LVES Vol(simp.)32.0 mL LVDd4.2 (3.8-5.6cm)LA (2D)4.4 (1.6-4.0cm)LVEF(%, simp.)66 % PWd1.1 (0.7-1.1cm)Ao Root(2D)2.8 (2.0-3.7cm)LA ESV INDEX (BP)28.64 mL/m2 LVDs1.9 (2.5-4.0cm)LVOT diam2.2 (1.8-2.4cm) IVC diam1.6 cm Deformation Strain Apical 4-19.0 % Apical 2-19.7 % Apical 3-18.7 % Global Strain-19.1 % M-Mode Dimensions EPSS0.7 cm LA (MM)4.0 (1.6-4.0cm) Ao Root(MM)2.9 (2.0-3.7cm) Aortic Valve AoV Vmax1.9 m/Sandra Peak GR14.0 mmHgLVOT Vmax1.4 m/s AoV VTI0.3 mAo Mean GR8.2 mmHgLVOT VTI0.26 m KELLY (VMAX)2.87 cm2AVA (VTI) 3.3 cm2 Mitral Valve MV E Vmax98.2 cm/sDECEL Uxkh746 ms MV A Vmax55.9 cm/sP 1/2 T35 ms E/A ratio1.8MVA (PHT)6.3 cm2 TDI E/E' Medial7.0E/E' Lateral6.5 Medial E' Peak V14.07 cm/sLateral E' Peak V15.09 cm/s Pulmonary Valve PV Vmax1.7 m/sPV VTI0.32 mPV Mean GR6.1 mmHg PV Peak GR11.4 mmHg Left Ventricle The left ventricle is normal size. No regional wall motion abnormalities noted. Mild concentric left ventricular hypertrophy. Left ventricular systolic function is hyperdynamic, estimated LVEF greater t lainez 70%. Indeterminate diastolic function secondary to near E to A fusion. Right Ventricle The right ventricle is normal size. The right ventricular systolic function is normal. Atria The left atrium size is normal. The right atrium size is normal. Aortic Valve The aortic valve is normal in structure. No aortic regurgitation is present. There is no aortic valvu lar stenosis. Mitral Valve The mitral valve is normal in structure. There is no mitral valve regurgitation noted. There is no mi tral valve stenosis. Tricuspid Valve The tricuspid valve is normal in structure. Trace tricuspid regurgitation. RVSP is normal. Pulmonic Valve Pulmonic valve is not well visualized. Great Vessels The aortic root is normal in size. The IVC is normal in size and collapses >50% with inspiration. Pericardium There is no pericardial effusion. Conclusion The cardiac chambers are normal in size. Mild concentric left ventricular hypertrophy. No regional wall motion abnormalities noted. Left ventricular systolic function is hyperdynamic, estimated LVEF greater than 70%. Indeterminate diastolic function secondary to near E to A fusion. Trace tricuspid regurgitation. PASP is normal. There is no pericardial effusion.
[2025-02-19 05:40] LABS: BASOPHILS # (AUTO) 0.03 K/uL (0.00-0.20); BASOPHILS % (AUTO) 0.2 % (0.0-5.0); IMMATURE GRANULOCYTE ABSOLUTE 0.07 K/uL (0-1); LYMPHOCYTES # (AUTO) 1.1 K/uL (1.0-4.8); LYMPHOCYTES % (AUTO) 5.9 % (21.0-51.0); MEAN CORPUSCULAR HEMOGLOBIN 31.2 pg (27.0-33.0); MEAN CORPUSCULAR HGB CONC 34.3 g/dL (32.0-36.0); MEAN CORPUSCULAR VOLUME 90.9 fL (79-99); MONOCYTES # (AUTO) 0.6 K/uL (0.1-1.0); MONOCYTES % (AUTO) 3.2 % (3.0-13.0); NEUTROPHILS # (AUTO) 17.3 K/uL (1.8-7.7); NEUTROPHILS % (AUTO) 90.3 % (40.0-77.0); PLATELET COUNT (AUTO) 199 K/uL (130-400); RED BLOOD CELL COUNT(AUTO) 5.06 MIL/uL (4.50-6.20); RED CELL DISTRIBUTION WIDTH 13.1 % (11.0-15.5); WHITE BLOOD COUNT (AUTO) 19.2 K/uL (4.8-10.8)
[2025-02-19 05:58] LABS: ALBUMIN 3.6 g/dL (3.5-5.0); BILIRUBIN,DIRECT 0.1 mg/dL (0.0-0.3); BILIRUBIN,TOTAL 0.5 mg/dL (0.2-1.0); CREATININE 0.6 mg/dL (0.5-1.3); MAGNESIUM 2.2 mg/dL (1.80-2.40); POTASSIUM 4.3 mmol/L (3.5-5.1); TOTAL PROTEIN, SERUM 7.3 g/dL (6.0-8.3)
[2025-02-19 06:13] LABS: HEMOGLOBIN A1C 5.7 % (4.0-6.0)
[2025-02-19] MEDS: Solu-medROL 40MG VIAL IVP SCH (06:19)
[2025-02-19] MEDS ORDERED: amLODIPine 5 MG TAB PO SCH (09:00)
[2025-02-19] MEDS ORDERED: AMLO5TAB4 PO (13:12)
--- NOTE | 2025-02-19 13:21 | NUR ---
[facility] Consult: Patient assessed by wound healing team. See wound assessment. Assessment and recommendations provided to primary nurse. Education provided. Addendum: 02/20/25 at 1619 by WILLIAM MURRAY RN RN/ Amended: Links added.
--- NOTE | 2025-02-19 13:24 | DS ---
Discharge Summary Hospital Course Summary: DATE OF ADMISSION:[02/18/2025] DATE OF DISCHARGE:[02/19/2025] DISPOSITION:[Home] CONDITION:[Medically stable] CONSULTANTS:[Hospitality Services Manager, wound doctor] FOLLOW UP APPOINTMENTS:[PCP2 to 3 days. Hospitality Services Manager within one week] PROCEDURES:[None] IMAGING: report attached to summary MICROBIOLOGY: report attached to summary ACTIVITY:[Independent] HOME MEDICATIONS: see [facility] NEW MEDICATIONS:[Written prescription was given to the patient as per die cutter diamond of Medrol pack, doxycycline x5 days and albuterol 0.5. Amlodipine was sent to patient's pharmacy.] EMERGENCY INSTRUCTIONS: The patient was instructed to present to the nearest Emergency departmentr or call 911 once their symptoms will return or worsen Steel Manager(s): Patient is 41 years old male with a past medical history of asthma and hy perlipidemia who came to emergency department with a complaint of excessive cough and shortness of breaths. Patient was also complaining of inability to sleep. Patient decided to come to the hospital further evaluation/recommendations. Throughout the hospitalization patient was placed on methylprednisolone 60 mg q.8 hours and then was lower 40 mg q.8 hours. Patient was also placed on doxycycline IV antibiotics. Patient was evaluated by the die cutter diamond and since patient is requesting to be discharged home due to having an appointment with the [facility] today, as per die cutter diamond patient was cleared to be discharged home and written prescription by FOOD AND BEVERAGE CASHIER was given to the patient for Medrol pack, doxycycline x5 days and albuterol 0.5 mg. Nurse geraldo rodrigues also sent amlodipine BP medication to patient's pharmacy. WBC has been elevated but that is probably due to high doses of steroids for the past few days. Chest x-ray was negative CT chest was negative 2D echo showed more than 70% EF. Patient denies any shortness of breath, chest pain, nausea, vomiting or any other discomfort. Patient is not on any O2. Patient is cleared to be discharged home follow up outpatient with the PCP in2 to 3 days. Follow up with die cutter diamond within one week. Procedure(s): REVIEW OF SYSTEMS CONSTITUTIONAL: Denies fevers, chills, or night sweats. No unintentional weight loss reported. NEUROLOGICAL: Denies headache, amaurosis fugax, motor weakness, sensory deficit, vertigo/spinning sensation, gait abnormalities, or tremors. ENT: No hearing loss, otalgia, otorrhea, rhinitis, rhinorrhea, hoarseness, or sore throat. CARDIOVASCULAR: Denies any exertional angina, dyspnea on exertion, orthopnea, paroxysmal nocturnal dyspnea, palpitations, life-threatening arrhythmias, claudi cation. PULMONARY: Denies any phlegm/sputum, hemoptysis, pleuritic chest pain. Denies any shortness of breaths or cough at this moment SLEEP: Denies morning headaches, daytime somnolence or napping. Denies difficulty falling asleep, staying asleep, waking from sleep. Denies knowledge of snoring. GASTROINTESTINAL: Denies any type of dysphagia to either liquids or solids. Denies nausea, vomiting, pyrosis, early satiety, abdominal pain, diarrhea, constipation, or changes in stool consistency or caliber. Denies coffee-ground emesis, hematemesis, hematochezia, or melanotic stools. GENITOURINARY: Denies frequency, urgency, nocturia, hematuria or incontinence (Storage/Irritative symptoms.) Low urinary stream, straining to void, urinary intermittency or hesitancy, splitting of the voiding stream, terminal dribbling. ENDOCRINOLOGIC: Denies polyuria, polydipsia, polyphagia or heat/cold intolerances. HEMATOLOGIC: Denies thrombophilia/previous clots, or coagulopathy/bleeding dis orders. ONCOLOGIC: Denies personal history of malignancy. DERMATOLOGIC: Denies rashes or pruritus. PSYCHIATRIC: Denies any suicidal or homicidal ideation. Denies hallucinations. Assessment/Plan: ASSESSMENT: [ Acute asthma exacerbation POA Acute hypoxemic respiratory failure POA Uncontrolled hypertension POA Hyperlipidemia POA Hyperglycemia POA Electrolyte imbalance hypocalcemia 8.3 POA] PLAN: [ Admit to: Medical-surgical floor Consults: Hospitality Services Manager Antibiotics: Doxycycline Tests: 2D echo, CT chest, chest x-ray NEURO: Minimize central acting medications as possible. Fall Precautions. Well lighted room through the day and minimize interruptions through the night to prevent acute delirium. PULMONARY: Chest x-ray pending CT chest without contrast pending Pulmonology consultation pending Supplemental 02 as needed BiPAP as necessary, for respiratory distress Titrate Fio2 to keep Spo2 > or = 90% DuoNebs and CPT as needed IS hourly while awake for pulmonary hygiene Out of bed to chair as tolerated VAP Bundle Maintain aspiration precautions at all times CARDIOVASCULAR: 2D echo pending Follow hemodynamics. Vital signs per facility protocol GI & NUTRITION: Continue nutritional support Aspirations precautions Prokinetic agents and laxatives as needed KIDNEYS & ELECTROLYTES: Strict monitoring of intake and output Daily weights Avoid nephrotoxic agents Monitor electrolytes and replace as needed Goal urine output of 30mL/hr or 0.5mL/kg/hr Medications to be dosed according to renal function. Avoid contrast if possible ENDOCRINE: Maintain blood glucose between 100-180 at all times. Insulin sliding scale for blood glucose management Hypoglycemia and hyperglycemia protocol in place INFECTIOUS DISEASE: Trend temperature, WBC and procalcitonin level Follow cultures, deescalate antibiotics as soon as possible. Panculture if new onset fever HEMATOLOGY & COAGULATION: Monitor H&H. Keep Hgb > 7 Transfuse 1 unit of PRBC for Hgb < 7 Transfuse 1 pack of platelets of platelets < 20, 000 Watch for any signs and symptoms of bleeding SKIN: Pressure ulcer prevention per facility protocol Specialty mattress as needed Treatment plan discussed with patient and family at the bedside Medications to be reconciled once obtained by patient and/or family and available to be reconciled in computer p.r.n. medication for pain nausea and vomiting Questions were answered We will continue to monitor the patient closely Print Traffic Manager for disposition Rehab: PT/OT GI: PPI DVT: SCD's Code Status: Full Resuscitation Disposition: TBD Prognosis: Guarded] Home Medications: Active Scripts Amlodipine Besylate (Norvasc 5Mg Tab) 5 Mg Tablet, 10 MG PO DAILY, #60 TAB Prov:MATA DELATORRE SUPERVISOR [employer]OSPH[employer]US PROCESSING 02/19/25 Ibuprofen (Ibuprofen) 600 Mg Tablet, 600 MG PO Q6H PRN for PAIN, #15 TAB Prov:GO GIFFORD 09/10/21 Albuterol Sulfate (Proair Hfa) 8.5 Gm Hfa.aer.ad, 2 INH IH Q4H for 5 Days, #1 INHALER Prov:GO GIFFORD 09/10/21 Discontinued Reported Medications Albuterol Sulfate (Albuterol Sulfate) 2.5 Mg/3 Ml (0.083 %) Vial.neb, 1 VIAL NEB Q4HPRN PRN for wheezing, #150 ML 0 Refills 02/18/25 Discontinued Scripts Cephalexin Monohydrate (Keflex) 500 Mg Cap, 1 CAP PO TID for 10 Days, #30 CAP 0 Refills Prov:JOHN MILLARD MD 02/17/25 Prednisone (Prednisone) 20 Mg Tablet, 2 TAB PO DAILY for 5 Days, #10 TAB 0 Refills TAKE 1 TAB BY MOUTH THREE TIMES PER DAY X3 DAYS, THEN TAKE 1 TAB BY MOUTH TWICE A DAY X2 DAYS, THEN TAKE 1 TAB BY MOUTH ONCE A DAY X1 DAY. Prov:JESSICA JOYNER MD 09/29/21 Azithromycin (Azithromycin) 1 Gm Packet, 1 TAB PO AD for 5 Days, #1 PKT Prov:JESSICA JOYNER MD 09/29/21 D-Methorphan Hb/P-Epd HCl/Bpm (Bromfed Dm Cough Syrup) 118 Ml Syrup, 10 ML PO QID for cough, #120 ML Prov:JESSICA JOYNER MD 09/29/21 Diphenhydramine HCl (Benadryl) 25 Mg Cap, 25 MG PO BID for 5 Days, #10 CAP Prov:GO GIFFORD 09/10/21 Pseudoephedrine HCl (Sudafed 12 Hour) 120 Mg Tablet.er, 120 MG PO BID for 5 Days, #10 TAB Prov:GO GIFFORD 09/10/21 Brompheniram/Phenylephrine/Dm (Dimetapp Cold & Cough Liquid) 237 Ml Solution, 10 ML PO TID for 5 Days, #100 ML Prov:GO GIFFORD 09/10/21 Time spent arranging discharge: 31-60 minutes ATTESTATION BY PHYSICIAN I have seen and examined the patient. I reviewed the documentation, medical decision making, and treatment plan as noted by the mid-level provider above. I agree with the findings and plan of care. DICK SANTIAGO MD, KATARZYNA B SUPERVISOR [employer] PROCESSING Feb 19, 2025 13:19
--- NOTE | 2025-02-19 13:30 | NUR ---
CHARITO FROM WOUND CARE TO EVALUATE LACERATION TO RIGHT 3RD FINGER. D/C INSTRUCTIONS GIVEN AND ACKNOWLEDGED TO PATIENT/SPOUSE Addendum: 02/19/25 at 1336 by CYNTHIA LI RN RN IV REMOVED
--- NOTE | 2025-02-19 14:34 | PN ---
[facility] PROGRESS NOTE Date Patient Seen: Feb 19, 2025 Time of Visit: 14:34 Supervising Physician: Dr. Zev Pedersen Primary Care Physician: [facility] [place] [facility] Outpatient Specialists: [ ] Inpatient Consults: [ ] PROBLEM LIST: 1. Acute exacerbation of asthma 2. Hypertension uncontrolled, undiagnosed and untreated 3. Hyperlipidemia 4. Diabetes mellitus type II, undiagnosed and untreated 5. Morbid obesity INTERVAL HISTORY: Patient evaluated at bedside present, currently on room air denies any symptoms associated his event the hospital. Patient has a diagnosis of asthma made by the [place] in 2017, has a rescue inhaler at home as well as a nebulizer with albuterol treatments. We have made recommendations for primary team of high- dose steroid taper upon discharge as well as increasing the concentration of his albuterol treatments at home. Continue doxycycline to complete antibiotic regimen. Patient was advised to follow up at [facility] for continued monitoring and re-evaluation of the patient's asthma status. 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 REVIEW OF SYSTEMS: 12 point ROS reviewed with patient. Pertinent positives mentioned above. Otherwise negative. PHYSICAL EXAM: GENERAL: alert, weak, awake oriented x 3 HEENT: EOMI, Sclera non icteric, moist mucosa NECK: Supple, no JVD, trachea midline LUNGS: Clear breath sounds bilaterally. No wheezes HEART: Regular rate and rhythm. Normal S1 and S2, without murmurs ABD: Abdomen soft, nontender. Bowel sounds present EXT: No clubbing cyanosis or edema NEURO: Alert and oriented to person, follows commands Vital Signs (last 8hr) Date Time Temp Pulse Resp B/P (MAP) Pulse Ox O2 Delivery O2 Flow Rate FiO2 02/19/25 12:00 97.9 103 19 152/99 95 Room Air 02/19/25 11:37 102 18 02/19/25 09:51 95 Room Air* 0 21 02/19/25 08:00 97.9 100 20 132/92 95 Room Air 02/19/25 06:59 105 18 N/A Room Air 21 02/19/25 06:57 105 18 LABS: Hematology Labs: Test 02/19/25 05:29 Range/Units White Blood Count 19.2 H 4.8-10.8 K/uL Red Blood Count 5.06 4.50-6.20 MIL/uL Hemoglobin 15.8 14.0-18.0 g/dL Hematocrit 46.0 42-54 % Mean Corpuscular Volume 90.9 79-99 fL Mean Corpuscular Hemoglobin 31.2 27.0-33.0 pg Mean Corpuscular Hemoglobin Concent 34.3 32.0-36.0 g/dL Red Cell Distribution Width 13.1 11.0-15.5 % Platelet Count 199 130-400 K/uL Mean Platelet Volume 10.5 7.5-10.5 fL Immature Granulocyte % (Auto) 0.4 0-1 % Neutrophils (%) (Auto) 90.3 H 40.0-77.0 % Lymphocytes (%) (Auto) 5.9 L 21.0-51.0 % Monocytes (%) (Auto) 3.2 3.0-13.0 % Eosinophils (%) (Auto) 0.0 0.0-8.0 % Basophils (%) (Auto) 0.2 0.0-5.0 % Neutrophils # (Auto) 17.3 H 1.8-7.7 K/uL Lymphocytes # (Auto) 1.1 1.0-4.8 K/uL Monocytes # (Auto) 0.6 0.1-1.0 K/uL Eosinophils # (Auto) 0.00 0.00-0.70 K/uL Basophils # (Auto) 0.03 0.00-0.20 K/uL Absolute Immature Granulocyte (auto 0.07 0-1 K/uL Nucleated Red Blood Cells 0.0 0.0-0.19 % White Cell Morphology Comment See comments Chemistry Labs: Test 02/19/25 11:23 02/19/25 05:29 Range/Units Whole Blood Glucose 168 H 70-110 MG/DL Sodium Level 136 136-145 mmol/L Potassium Level 4.3 3.5-5.1 mmol/L Chloride Level 102 101-111 mmol/L Carbon Dioxide Level 26 21-32 mmol/L Blood Urea Nitrogen 12 7-18 mg/dL Creatinine 0.6 0.5-1.3 mg/dL Glomerular Filtration Rate Calc 119 >90 mL/min Random Glucose 176 H 70-105 mg/dL Hemoglobin A1c 5.7 4.0-6.0 % Estimated Average Glucose (eAG) 117 70-126 mg/dL Lactic Acid Level 1.7 0.8-2.5 mmol/L Total Calcium 8.8 8.5-10.1 mg/dL Magnesium Level 2.20 1.80-2.40 mg/dL Total Bilirubin 0.5 0.2-1.0 mg/dL Direct Bilirubin 0.1 0.0-0.3 mg/dL Aspartate Amino Transf (AST/SGOT) 17 10-37 U/L Alanine Aminotransferase (ALT/SGPT) 47 12-78 U/L Alkaline Phosphatase 83 50-136 U/L Ammonia 18 11-32 umol/L Total Creatine Kinase 187 21-232 U/L B-Type Natriuretic Peptide 46 0-100 pg/mL Total Protein 7.3 6.0-8.3 g/dL Albumin 3.6 3.5-5.0 g/dL Amylase Level 25 25-115 U/L Procalcitonin < 0.05 L 0.05-0.5 ng/mL DIAGNOSTICS / RADIOLOGY RESULTS: [ ] PLAN NEURO: Minimize central acting medications as possible. Maintain fall precautions, adequate lighting during the day PULMONARY: Supplemental 02 as needed. Maintain aspiration precautions at all times CARDIOVASCULAR: Follow hemodynamics. Vital signs per facility protocol GI & NUTRITION: Continue with nutritional support. Continue stool softeners and laxatives as needed. KIDNEYS & ELECTROLYTES: Strict monitoring of intake, output and overall fluid balance. Avoid nephrotoxic medications to the extent possible. Medications to be dosed according to renal function. Monitor electrolytes and replace as needed ENDOCRINE: Maintain blood glucose between 100-180 at all times. Hypoglycemia protocol in place INFECTIOUS DISEASE: Trend temperature, WBC and procalcitonin level Follow cultures, deescalate antibiotics as soon as possible. Panculture if new onset fever ONCOLOGY/HEMATOLOGY/COAGULATION: Monitor for s/s of bleeding Monitor hemoglobin, coagulation studies as needed SKIN: Pressure ulcer prevention per facility protocol Specialty mattress ORTHO/REHAB: Continue PT/OT Prophylaxis: Continue GI and DVT prophylaxis Code Status: Full Resuscitation Disposition: Per primary team TBD Other: Total patient care time exceeds 35 minutes excluding all procedures. AILYN NAQVI Feb 19, 2025 14:34
--- NOTE | 2025-02-19 16:00 | NUR ---
Order received for 49 yo admitted due to asthma exacerbation. Spoke to Mary, nurse, who stated patient has been up walking in his room. No skilled PT need at this time. DC from PT.
== END 2025-02-19 13:20 | disposition home or self-care (01) ==
LOC: EDH 04:19 → EDHIP 09:33 → INTOOBSV 09:33 → 3BH 20:32 → 3CH 20:36
PROVIDERS: ADMIT Internal Medicine; ATTEND Internal Medicine
DX: J45.901 Unspecified asthma with (acute) exacerbation (principal); Z20.822 Contact with and (suspected) exposure to COVID-19; J96.01 Acute respiratory failure with hypoxia; E11.65 Type 2 diabetes mellitus with hyperglycemia; E83.51 Hypocalcemia; E66.01 Morbid (severe) obesity due to excess calories; E78.5 Hyperlipidemia, unspecified; E87.8 Other disorders of electrolyte and fluid balance, not elsewhere classified; I10 Essential (primary) hypertension; Z98.890 Other specified postprocedural states; Z79.899 Other long term (current) drug therapy; Z68.38 Body mass index [BMI] 38.0-38.9, adult
CPT/HCPCS: 36415; 71045; 71250; 76376; 80048; 80053; 80076; 81001; 82140; 82150; 82550; 82948; 83036; 83605; 83735; 83880; 84145; 85025; 87635; 87804; 87880; 93306; 93356; 94640; 94644; 94664; 96365; 96366; 96368; 96372; 96375; 96376; 99291; G0378; J0360; J1644; J2919; J3475; J3490